=== PATIENT | male | born 1965 | race Caucasian/White ===

== ENCOUNTER 2016-09-01 11:46 | Emergency (ER) | payer BC ==
[~2016-09-01] VITALS: Ht 182.9 cm; Wt 109.9 kg
[2016-09-01 11:54] VITALS: BP 136/74
[2016-09-01] MEDS ORDERED: ALBUTEROL SULFATE/IPRATROPIU 3 ML SOL IH ONE (12:50)
[2016-09-01] MEDS ORDERED: MECLIZINE 25 MG TAB PO ONE (12:50)
--- NOTE | 2016-09-01 12:50 | NUR ---
PT AMBULATED TO BED 5.
--- NOTE | 2016-09-01 12:52 | NUR ---
51M BIB SELF C/O INTERMITTENT DIZZINESS X 2 MONTHS; PT STATES NO VISION CHANGES AT THIS TIME; PT AA&OX4, PERRLA, PT STATES NO TRAUMA OR INJURY TO HEAD AT THIS TIME THAT COULD HAVE CAUSED DIZZINESS; PT STATES HX CONCUSSIONS; PT C/O NAUSEA, BUT DENIES VOMITING OR DIARRHEA AT THIS TIME; ABDOMEN SOFT, NON-TENDER, ACTIVE BOWEL SOUNDS X 4 QUADRANTS; BL LUNG SOUNDS CLEAR, RR EVEN/UNLABORED, SKIN IS WARM/DRY/INTACT; STEADY GAIT; PT RESTING IN BED W/ HOB ELEVATED AND IN LOWEST POSITION; POSITIONED FOR COMFORT; ER MD MADE AWARE OF STATUS. WILL CONTINUE TO MONITOR.
--- NOTE | 2016-09-01 13:01 | NUR ---
PT REFUSES IV AT THIS TIME; STATES " I DON'T FEEL LIKE I NEED ONE"; ER MD DR. TALAVERA NOTFIED. PT REFUSES SUPPLEMENTAL O2 AT THIS TIME WELL; STATES BREATHING FINE; RR EVEN/UNLABORED; BL LUNG SOUNDS CLEAR, WILL CONTINUE TO MONITOR.
--- NOTE | 2016-09-01 13:06 | NUR ---
ER MD DR. TALAVERA EVALUATING PT AT BEDSIDE.
[2016-09-01 13:10] LABS: BASOPHILS # (AUTO) 0.3 K/uL (0.00-0.22); EOSINOPHILS # (AUTO) 0.1 K/uL (0-0.4); EOSINOPHILS % (AUTO) 1.5 % (0.0-4.0); HEMOGLOBIN 14.4 g/dL (12.0-18.0); LYMPHOCYTES # (AUTO) 1.7 K/uL (2.0-11.5); LYMPHOCYTES % (AUTO) 19.2 % (20.5-51.1); MEAN CORPUSCULAR HEMOGLOBIN 30 pg (27-31); MEAN CORPUSCULAR HGB CONC 33 g/dL (33-37); MEAN CORPUSCULAR VOLUME 91 fL (80-94); MONOCYTES # (AUTO) 0.5 K/uL (0.8-1.0); MONOCYTES % (AUTO) 5.6 % (1.7-9.3); NEUTROPHILS # (AUTO) 6.1 K/uL (1.8-7.7); NEUTROPHILS % (AUTO) 70.7 % (42.2-75.2); PLATELET COUNT (AUTO) 339 K/uL (140-450); RED BLOOD CELL COUNT(AUTO) 4.85 MIL/uL (4.20-6.10); RED CELL DISTRIBUTION WIDTH 12.4 % (11.6-13.7); WHITE BLOOD COUNT (AUTO) 8.7 K/uL (4.8-10.8)
[2016-09-01 13:35] LABS: ALBUMIN 3.7 g/dL (3.4-5.0); CARBON DIOXIDE 28.1 mmol/L (21-32); POTASSIUM 4.1 mmol/L (3.5-5.1); TOTAL BILIRUBIN 0.5 mg/dL (0.0-1.0); TOTAL PROTEIN, SERUM 7.5 g/dL (6.4-8.2)
--- NOTE | 2016-09-01 13:42 | NUR ---
[facility] GIVEN ORDERED EDUCATION PROVIDE WITH ACKNOWLEDGEMENT ON [facility] AND RESPIRATORY DRUG ENCOURAGED PATIENT FOR DEEP BREATHING DURING THERAPY TOLERATED WELL WITHOUT INCIDENT
[2016-09-01 13:51] LABS: PARTIAL THROMBOPLASTIN TIME 23.4 secs (22-35.6); PROTHROMBIN TIME 10.6 secs (10.8-13.4)
--- NOTE | 2016-09-01 14:59 | NUR ---
PT AGREED TO IV AND CT WITH CONTRAST; IV STARTED TO RT AC 20 G; CONSENT SIGNED; EXPLAINED RISKS/BENEFITS OF CT W/ CONTRAST TO PT; ALL QUESTIONS ADDRESSED PRIOR TO CONSENT.
--- NOTE | 2016-09-01 15:06 | NUR ---
PT TAKEN TO CT VIA GURANEL ACCOMPANIED BY [employer].
--- NOTE | 2016-09-01 16:21 | NUR ---
PT APPEARS TO BE RESTING COMFORTABLY IN BED; VSS STABLE; RR EVEN/UNLABORED; WILL CONTINUE TO MONITOR.
[2016-09-01] MEDS ORDERED: ASPIRIN 325 MG TAB PO ONE (17:00)
--- NOTE | 2016-09-01 18:15 | NUR ---
DANIEL TALAVERA AT BEDSIDE.
--- NOTE | 2016-09-01 18:52 | NUR ---
REPORT GIVEN TO ANDERSON FISCHER AT [facility] AT THIS TIME.
[2016-09-01 18:53] VITALS: BP 122/79
--- NOTE | 2016-09-01 18:53 | NUR ---
Patient to be transferred to [facility]. Is being transferred due to HIGHER LEVEL OF CARE. Receiving facility has accepting physician and available space. ER physician has signed transfer form. Patient or responsible republican has agreed to transfer and signed form. Patient belongings inventoried and will be sent with patient. Copy of nursing notes, lab reports, EKG, Physicians Orders and X-rays to be sent with patient. Report called to ANDERSON FISCHER at receiving facility. [facility] TRANSFERRING PT VIA GURNEY AT THIS TIME.
== END 2016-09-01 18:53 | disposition short-term general hospital (02) ==
LOC: MED 11:46
CPT/HCPCS: 36415; 70470; 70492; 71010; 80053; 83880; 84484; 85025; 85610; 85730; 93005; 94640; 99285; J7620; J8597; Q0092; Q9967